=== PATIENT | female | born 1990 | race Two or more races ===

== ENCOUNTER 2024-03-13 09:41 | Emergency (ER) | payer BC, OTHER ==
[~2024-03-13] VITALS: Ht 165.1 cm; Wt 80.8 kg
[2024-03-13 11:05] VITALS: BP 125/85; PULSE 114; RESP 18; TEMP 98.8; O2SAT 99
--- NOTE | 2024-03-13 11:17 | DVH ---
CHEST RADIOGRAPH Indication: COUGH Technique: Single frontal view of the chest was obtained Comparison: None FINDINGS: Lines and Tubes: None Lungs: No focal consolidation. Pleura: No effusion. No pneumothorax. Cardiomediastinal contours: Unremarkable Bones: No acute osseous abnormality. IMPRESSION: 1. No radiographic evidence of acute cardiopulmonary disease. HS:Y
[2024-03-13] MEDS ORDERED: PROM1SOL2 PO (11:42)
--- NOTE | 2024-03-13 11:42 | ED.PDOC ---
SOB-HPI HPI Comments 33-year-old with no pertinent MHx presents with a chief complaint of URI s ymptoms x4 days. Admits she was seen at urgent care two days ago and was prescribed medication with no improvement. Reports she was prescribed benzonatate 100 mg t.i.d. times 10 days and albuterol. Also taking [id number] Tylenol as needed. Her current symptoms include a nonproductive cough that comes and goes throughout the days. No associated symptoms Denies fevers chills night sweats unintentional weight loss Denies persistent chest pain, shortness of breath, leg swelling Denies history of asthma nor any breathing conditions Denies history of pneumonia Denies recent international travel Chief Complaint: Cough Time Seen by MD: 10:10 Primary Care Provider: ? Reviewed notes: Nurses Notes, Medications, Allergies Information Source: Patient Mode of Arrival: Ambulatory Family History Family History: Reviewed,noncontributory to illness Social History Smoker: Non-Smoker Alcohol: Denies ETOH Use Drugs: Denies Drug Use All Other Systems: Reviewed and Negative (Per HPI) Physical Exam General Appearance: No Apparent Distress, Normal HEENT: Normal ENT Inspection, Pharynx Normal, TMs Normal Neck: Full Range of Motion, Non-Tender, Normal, Normal Inspection Respiratory: Chest Non-Tender, Lungs Clear, No Accessory Muscle Use, No Respiratory Distress, Normal Breath Sounds Cardiovascular: No Edema, No JVD, No Murmur, No Gallop, Normal Peripheral Pulses, Regular Rate/Rhythm Breast Exam: Deferred Gastrointestinal: No Organomegaly, Non Tender, No Pulsatile Mass, Normal Bowel Sounds, Soft Genitalia: Deferred Pelvic: Deferred Rectal: Deferred Extremities: No calf tenderness, Normal capillary refill, Normal inspection, Normal range of motion, Non-tender, No pedal edema Musculoskeletal : Apperance: Normal Neurologic: Alert, ordering box operator II-XII nml as Tested, No Motor Deficits, Normal Affect, Normal Mood, No Sensory Deficits Cerebellar Function: Normal Reflexes: Normal Skin: Dry, Normal Color, Warm Lymphatic: No Adenopathy Was a procedure done? Was a procedure done?: No Differential Dx Differential Diagnosis: Bronchitis X-Ray, Labs, Meds, VS Vital Signs Date Time Temp Pulse Resp B/P (MAP) Pulse Ox O2 Delivery O2 Flow Rate FiO2 03/13/24 11:05 98.8 114 18 125/85 (98) 99 98.8 12/9/24 11:05 114 18 99 Room Air 03/13/24 10:11 98.8 114 18 125/85 (98) 99 Current Medications Medications (Trade) Dose Ordered Sig/Ar Route Start Time Stop Time Status Last Admin Promethazine HCl/ Codeine (Phenergan W/ Codeine) 5 ml ONCE ONCE PO 03/13/24 11:45 03/13/24 11:46 DC 03/13/24 11:47 X-Ray, Labs, Meds, VS Comment History and physical consistent of URI Take medication as prescribed No concerns for pneumonia at this time. No risk factors. No indication for antibiotics Discussed that cough can linger up to 6 weeks after viral URI ED precautions if cough does not alleviate or if cough worsens Supportive care and return precautions discussed Counseled viral infection and explained that antibiotics would not be helpful in resolving the illness sooner. Recommended vitamin C, rest, handwashing, and symptomatic care. Expect 2-week course with possibly of cough lingering up to 6 weeks. Nonpharmacological remedies for fluids has been recommended as well Time of 1ST Reevaluation: 11:30 Reevaluation 1ST: Improved Patient Education/Counseling: Diagnosis, Treatment Family Education/Counseling: Diagnosis, Treatment Departure 1 Departure Time of Disposition: 11:39 Impression: Primary Impression: Bronchitis Disposition: 01 HOME / SELF CARE / HOMELESS Condition: Stable e-Prescriptions Promethazine-Dm (Promethazine Hydrochlorid 6.25-15 mg/5Ml) 1 Miriam Miriam 5 ML PO TIDP PRN for 10 Days, #150 ML 0 Refills Prov: DANIAL CHRISTOPHER NP 03/13/24 Discharged With: Relative Critical Care Note Critical Care Time?: No Stability Stability form required: No Heart Score Heart Score: Heart Score Response (Comments) Value History N/A 0 EKG N/A 0 Age N/A 0 Risk Factors N/A 0 Troponin N/A 0 Total 0 DANIAL CHRISTOPHER NP Mar 13, 2024 11:42
[2024-03-13] MEDS: PROMETHAZINE W/CODEINE 5 ML ORAL SYRUP PO ONE (11:47)
== END 2024-03-13 11:56 | disposition home or self-care (01) ==
LOC: ER 09:41
DX: J40 Bronchitis, not specified as acute or chronic (principal)
CPT/HCPCS: 71045